=== PATIENT | female | born 1955 | race Two or more races ===

== ENCOUNTER 2016-07-27 08:22 | Day surgery (SDC) | payer OTHER ==
[2016-07-26 14:14] VITALS: BMI 26.4
[2016-07-27 11:32] VITALS: TEMP 97.5
[2016-07-27 12:01] VITALS: PULSE 105
[2016-07-27 14:30] VITALS: BP 118/68
== END 2016-07-27 12:05 | disposition home or self-care (01) ==
LOC: JASU-ENDO 08:22
PROVIDERS: ATTEND Internal Medicine Gastroenterology
PROC: 0DJD8ZZ Inspection of Lower Intestinal Tract, Via Natural or Artificial Opening Endoscopic (ICD-10-PCS; principal; 2016-07-27 10:00)
DX: Z12.11 Encounter for screening for malignant neoplasm of colon (principal); Z80.0 Family history of malignant neoplasm of digestive organs; K57.30 Diverticulosis of large intestine without perforation or abscess without bleeding

== ENCOUNTER 2016-08-03 08:22 | Day surgery (SDC) | payer OTHER ==
[2016-08-03 09:00] VITALS: BMI 26.0
[2016-08-03] MEDS ORDERED: LIDOCAINE HCL/PF 2% SDV 5ML VIAL ONE (09:57)
[2016-08-03] MEDS ORDERED: PROPOFOL 20 ML ONE (09:58)
[2016-08-03 11:17] VITALS: TEMP 97.3
[2016-08-03 11:37] VITALS: PULSE 93
[2016-08-03 12:23] VITALS: BP 116/67
--- NOTE | 2016-08-04 13:41 | PATH ---
Surgical Pathology Report Patient Name: KEVEN RICKETTS [facility]. Rec. #: [id number] /Age/Gender: 1955 (Age: 61) / F Account: [id number] Location: [facility]-ENDOSCOPY Taken: 08/03/2016 Received: 08/03/2016 Reported: 08/04/2016 Physicians: Owen Navarro M.D. Specimen(s) Received A: BX DUODENUM B: BX BODY Clinical History GERD, persistent heart burn, off medications 2 cm hiatal hernia, gastritis, erythema Final Diagnosis A. DUODENUM, BIOPSY: DUODENAL MUCOSA WITH MILD CHRONIC INFLAMMATION. NO HISTOLOGIC EVIDENCE OF GLUTEN SENSITIVE ENTEROPATHY (CELIAC DISEASE). B. STOMACH, BODY, BIOPSY: GASTRIC OXYNTIC MUCOSA WITH MODERATE CHRONIC GASTRITIS WITH FOCAL CHANGES SUGGESTIVE OF PPI EFFECT. IMMUNOSTAIN FOR H. PYLORI IS NEGATIVE FOR ORGANISMS. Electronically Signed Casey Pena M.D. Gross Description A. Received in formalin, labeled "biopsy duodenum" are 2 de león, irregular portions of soft tissue measuring 0.3 and 0.5 cm in greatest dimension. The specimens are submitted in toto in one cassette. B. Received in formalin, labeled "biopsy body" are 2 de león, irregular portions of soft tissue averaging 0.3 cm in greatest dimension. The specimens are submitted in toto in one cassette. 08/03/201608/03/2016
== END 2016-08-03 12:23 | disposition home or self-care (01) ==
LOC: JASU-ENDO 08:22
PROVIDERS: ATTEND Internal Medicine Gastroenterology
PROC: 0DB68ZX Excision of Stomach, Via Natural or Artificial Opening Endoscopic, Diagnostic (ICD-10-PCS; 2016-08-03)
PROC: 0DB98ZX Excision of Duodenum, Via Natural or Artificial Opening Endoscopic, Diagnostic (ICD-10-PCS; principal; 2016-08-03 09:00)
DX: K29.70 Gastritis, unspecified, without bleeding (principal); K44.9 Diaphragmatic hernia without obstruction or gangrene; K29.80 Duodenitis without bleeding
CPT/HCPCS: 88305-TC; 88342-TC

== ENCOUNTER 2018-08-18 06:02 | Day surgery (SDC) | payer OTHER ==
[2018-08-17 10:23] VITALS: BMI 25.3
--- NOTE | 2018-08-18 07:59 | HP ---
History & Physical Update - History History: No Change - Physical Physical: No Change - Assessment Assessment: No Change - Plan Plan: No Change (Full H&P in chart from 08/11/18)
[2018-08-18] MEDS ORDERED: MIDAZOLAM HCL 2 MG/2 ML SINGLE DOSE VIAL ONE (08:13)
[2018-08-18] MEDS ORDERED: DEXAMETHASONE SOD PHOSPHATE 4 MG/1 ML VIAL ONE (08:16)
[2018-08-18] MEDS ORDERED: CLINDAMYCIN 600 MG PREMIX BAG IVPB ONE (08:16)
[2018-08-18] MEDS ORDERED: LIDOCAINE HCL/PF 2% SDV 5ML VIAL ONE (08:18)
[2018-08-18] MEDS ORDERED: CLINDAMYCIN PHOSPHATE 600 MG/4 ML VIAL ONE (08:18)
[2018-08-18] MEDS ORDERED: PROPOFOL 20 ML ONE (08:19)
[2018-08-18] MEDS ORDERED: PHENYLEPHRINE HCL 10 MG/1 ML SINGLE DOSE VIAL ONE (08:51)
[2018-08-18] MEDS ORDERED: GLYCOPYRROLATE 0.2 MG/1 ML VIAL ONE (09:13)
[2018-08-18] MEDS ORDERED: NEOSTIGMINE METHYLSULFATE 0.5 MG/ML - 10 ML MDV ONE (09:13)
[2018-08-18] MEDS ORDERED: oxyCODONE HCL 5 MG TABLET PO PRN (09:38)
[2018-08-18] MEDS ORDERED: ONDANSETRON 4 MG/2 ML VIAL IVPUSH PRN (09:38)
[2018-08-18] MEDS ORDERED: ACETAMINOPHEN 1000 MG/100 ML VIAL (NON FORMULARY) IVPB ONE (09:44)
[2018-08-18] MEDS ORDERED: LACTATED RINGERS SOLUTION 1,000 ML IV SCH (09:45)
--- NOTE | 2018-08-18 09:54 | OP ---
Operative Note - Note: Operative Date: 08/18/18 Pre-Operative Diagnosis: biliary hyperkinesia/chronic acalculous cholecystitis Operation: Laparoscopic cholecystectomy Findings: distended, floppy gallbladder Surgeon: Collins Armstrong Drug Clerk: Johana Alvarez Anesthesia: General Specimens Removed: gallbladder Estimated Blood Loss (mls): 1 Operative Report Dictated: Yes
[2018-08-18] MEDS ORDERED: ACETAMINOPHEN INJECTION 100 ML IVPB ONE (10:03)
--- NOTE | 2018-08-18 10:11 | SURG ---
Surgery Financial Sales Advisor Note Financial Sales Advisor: Johana Alvarez PA-C Date of Service: 08/18/18 Diagnosis: biliary hyperkinesia/chronic acalculous cholecystitis Procedure: Laparoscopic cholecystectomy I was present for the entirety of the operative procedure. For further detail, please refer to operative report. Visit type - Case Type Case Type: Scheduled - Emergency Emergency Visit: No - New patient This patient is new to me today: Yes Date on this admission: 08/18/18
[2018-08-18] MEDS ORDERED: oxyCODONE HCL 5 MG TABLET ONE (11:12)
--- NOTE | 2018-08-18 11:22 | OP ---
DATE OF OPERATION: 08/18/2018 PROCEDURE: Laparoscopic cholecystectomy. PREOPERATIVE DIAGNOSIS: Biliary hyperkinesia/chronic acalculous cholecystitis. POSTOPERATIVE DIAGNOSIS: Biliary hyperkinesia/chronic acalculous cholecystitis. SURGEON: Collins Armstrong MD FINANCE INTERN: ANDIE Granado ANESTHESIA: General endotracheal. FINDINGS ON PROCEDURE: This is a 63-year-old female who presents with chronic right upper quadrant pain radiating to the back associated with fatty meals. Ultrasound of the gallbladder revealed no stones and a normal-sized common duct. Patient had extensive GI workup consisting of EGD, colonoscopy, biopsies, which revealed no other abnormalities. Gallbladder HIDA scan with ejection fraction this time revealed 94% ejection fraction, which was above normal limits. Due to the persistence of the abdominal pain, upon discussion with the practical nursing teacher, it was agreed upon to remove the gallbladder to relieve the symptoms with patient being made aware that symptoms may recur or there might be a component of the sphincter of Oddi dysfunction. Consent was obtained after discussing the risks, benefits, and alternatives of the procedure. DESCRIPTION OF PROCEDURE: Patient was brought to the operating room and placed in supine position. General endotracheal anesthesia was administered. The abdomen was prepped and draped in the usual sterile fashion. Using 0.5% Marcaine, local anesthesia was administered to the proposed incision sites. The peritoneal cavity was entered using the Optiview technique with a 5-mm umbilical incision using a 5-mm 30-degree scope inserted in a 5-mm optical port. Pneumoperitoneum was established. The patient was then placed in reverse Trendelenburg [id number] position. An 11-mm subxiphoid port was inserted and two 5-mm subcostal ports were inserted at the midclavicular and anterior axillary lines at the level of the umbilicus. The gallbladder was noted to be distended and floppy. The fundus was grasped and retracted superiorly, and the infundibulum was grasped and retracted inferolaterally to expose the hepatocystic triangle. The visceral peritoneum covering the triangle was scored using the hook dissector connected to Monopolar cautery. Dissection was carried medially and laterally towards the proximal gallbladder wall detaching partially the gallbladder from the liver. The cystic duct was initially isolated using the [place] dissector and a critical view of safety was made by creating a window between the gallbladder wall, liver, and behind the cystic artery. The cystic duct was clipped at 3 points followed by transection leaving 2 clips at the cystic duct stump. Cystic artery was clipped, as well, as well as the branch, leaving 2 clips at each stump of the artery. The gallbladder was resected from its bed in antegrade fashion using the hook dissector. Afterwards, the gallbladder was placed in an Endobag and extracted via the subxiphoid incision. The gallbladder bed was carefully inspected and was noted to be free of active bleeding and the clips were also intact. The pneumoperitoneum was evacuated, and the ports were removed. The wounds were closed using subcuticular Biosyn 4-0 sutures reinforced with Dermabond. The patient was successfully extubated and transferred to the post-anesthesia care unit in satisfactory condition. ESTIMATED BLOOD LOSS: About 1 mL. WOUND CLASS: Clean-contaminated. The patient received 600 mg of clindamycin prior to the start of the procedure. Dalton [id number]
[2018-08-18 12:55] VITALS: BP 105/70; PULSE 103; TEMP 97.7
--- NOTE | 2018-08-21 19:15 | PATH ---
Surgical Pathology Report Patient Name: KEVEN RICKETTS [facility]. Rec. #: [id number] /Age/Gender: 1955 (Age: 63) / F Account: [id number] Location: [facility] SURGICAL Taken: 08/18/2018 Received: 08/18/2018 Reported: 08/21/2018 Physicians: Collins Armstrong M.D. Specimen(s) Received GALLBLADDER Clinical History Biliary hyperkinesia Final Diagnosis GALLBLADDER, LAPAROSCOPIC CHOLECYSTECTOMY: CHRONIC CHOLECYSTITIS. Electronically Signed Jacquie Knowles M.D. Gross Description Received in formalin, labeled "gallbladder," is a 0.8 x 2.7 x 2.0 cm. gallbladder with a 0.2 cm. in length portion of cystic duct attached. The outer surface is de león yo and varies from smooth to shaggy. The lumen contains green, tenacious bile. There are no choleliths present within the lumen or the container. The mucosa is dark green and velvety. The wall of the gallbladder measures 0.1 cm. in thickness. Mash Tub Cooker sections are submitted in one cassette. /08/19/2018 saudi08/19/2018
== END 2018-08-18 15:19 | disposition home or self-care (01) ==
LOC: JASU-SURG 06:02
PROVIDERS: ATTEND Surgery
PROC: 0FT44ZZ Resection of Gallbladder, Percutaneous Endoscopic Approach (ICD-10-PCS; principal; 2018-08-18 08:00)
DX: K81.1 Chronic cholecystitis (principal); K83.8 Other specified diseases of biliary tract
CPT/HCPCS: 88304-TC; 94760; J0131